=== PATIENT | male | born 1980 | race Caucasian/White ===

== ENCOUNTER 2025-05-08 15:50 | Day surgery (SDC) ==
[2025-05-08] MEDS ORDERED: BUPIVACAINE 0.5% VIAL IJ ONE (15:51)
[2025-05-08] MEDS ORDERED: methylPREDNISolone acetate IM ONE (15:51)
[2025-05-08] MEDS ORDERED: LIDOCAINE HCL 1% 50 MG/5 ML VL IJ ONE (15:51)
--- NOTE | 2025-05-08 20:31 | XRAY ---
Indication: Right knee injection. Intraoperative fluoroscopy provided for 7 seconds. Single digital spot image submitted for interpretation demonstrates needle tip projecting over right femur intercondylar notch. Small amount of contrast injected for needle tip placement. Correlate with intraoperative findings/report.
--- NOTE | 2025-05-09 10:07 | XRAY ---
7 seconds of fluoroscopy was used in surgery for a right intra-articular knee injection.
== END 2025-05-08 17:35 | disposition home or self-care (01) ==
LOC: SDC-PAIN 15:50
PROVIDERS: ATTEND Psychiatry & Neurology Pain Medicine
DX: M17.11 Unilateral primary osteoarthritis, right knee (principal)